=== PATIENT | female | born 1970 | race Caucasian/White ===

== ENCOUNTER 2020-09-22 02:00 | Emergency (ER) | payer OTHER ==
[2020-09-22] MEDS ORDERED: diphenhydrAMINE 25 MG Cap PO ONE (02:39)
[2020-09-22] MEDS ORDERED: methylPREDNISolone Sodium Succinate 125 MG/2 ML SDV IM ONE (02:39)
[2020-09-22] MEDS ORDERED: hydrOXYzine HCl 25 MG Tab PO ONE (02:39)
--- NOTE | 2020-09-22 02:39 | EDM.PDOC ---
ED HPI GENERAL MEDICAL PROBLEM - General Chief Complaint: Skin Complaint Stated Complaint: RASH/HIVES Time Seen by Provider: 09/22/20 02:29 Source of Information: Reports: Patient History Limitations: Reports: No Limitations - History of Present Illness INITIAL COMMENTS - FREE TEXT/NARRATIVE: Brittny is a 50-year-old female presenting to the ED with ongoing issues with urticaria for the last 2 to 3 weeks. Patient has been on several rounds of Medrol Dosepaks with minimal improvement and then the rash returns after completing the Medrol Dosepak. 3 weeks ago the patient was started on Metformin. She met with her pharmacist today who told her to stop the Metformin. He advised her to take Pepcid and Claritin. She reports the rash is very itchy and burning. Her skin is red and swollen. He denies any other new exposures. Patient denies any shortness of breath or difficulty swallowing. She has not been able to sleep because of the itching. hives/rash Pain Score (Numeric/FACES): 9 - Related Data Allergies Allergy/AdvReac Type Severity Reaction Status Date / Time No Known Allergies Allergy Verified 09/22/20 02:16 Home Meds: Home Meds Gabapentin [Neurontin] 1 tab PO BEDTIME 09/22/20 [History] Levothyroxine Sodium [Synthroid] 1 tab PO DAILY 09/22/20 [History] Metoprolol Succinate [Toprol XL] 1 tab PO DAILY 09/22/20 [History] Progesterone, Micronized [Progesterone] 2 tab PO DAILY 09/22/20 [History] hydrOXYzine HCL [Hydroxyzine HCl] 25 mg PO TID PRN #30 tablet 09/22/20 [Rx] hydroCHLOROthiazide [Hydrochlorothiazide] 1 tab PO DAILY 09/22/20 [History] lisinopriL [Zestril] 1 tab PO DAILY 09/22/20 [History] predniSONE [Prednisone] 10 mg PO ASDIRECTED #30 tablet 09/22/20 [Rx] Past Medical History Cardiovascular History: Reports: Hypertension 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: Endocrine/Metabolic History: Reports: Hypothyroidism, Other (See Below) Other Endocrine/Metabolic History: pre diabetic - Infectious Disease History Infectious Disease History: Reports: Chicken Pox - Past Surgical History Female Surgical History: Reports: Tubal Ligation Social & Family History - Family History Family Medical History: No Pertinent Family History - Tobacco Use Tobacco Use Status *Q: Current Every Day Tobacco User Years of Tobacco use: 40 Packs/Tins Daily: 1 - Caffeine Use Caffeine Use: Reports: Coffee - Recreational Drug Use Recreational Drug Use: No ED ROS GENERAL - Review of Systems Review Of Systems: See Below Constitutional: Reports: No Symptoms HEENT: Reports: No Symptoms Respiratory: Reports: No Symptoms Cardiovascular: Reports: No Symptoms Endocrine: Reports: No Symptoms GI/Abdominal: Reports: No Symptoms : Reports: No Symptoms Musculoskeletal: Reports: No Symptoms Skin: Reports: Pruritis, Urticaria Neurological: Reports: No Symptoms Psychiatric: Reports: No Symptoms Hematologic/Lymphatic: Reports: No Symptoms Immunologic: Reports: No Symptoms ED EXAM, SKIN/RASH Exam: See Below Exam Limited By: No Limitations General Appearance: Alert, Anxious, Moderate Distress Eye Exam: Bilateral Eye: EOMI, PERRL Ears: Normal External Exam Nose: Normal Inspection Throat/Mouth: Normal Oropharynx, Normal Voice, No Airway Compromise Head: Atraumatic, Normocephalic, Facial Swelling (Urticaria on the face and ne ck) Neck: Normal Inspection, Supple, Full Range of Motion Respiratory/Chest: No Respiratory Distress, Lungs Clear, Normal Breath Sounds Cardiovascular: Normal Peripheral Pulses, Regular Rate, Rhythm, No Murmur GI/Abdominal: Normal Bowel Sounds, Soft, Non-Tender Extremities: Normal Inspection Neurological: Alert, Oriented, Normal Cognition, No Motor/Sensory Deficits Psychiatric: Anxious Skin: Other (Generalized urticaria including on the face, neck, back and abdomen, upper and lower extremities. The skin is quite erythematous. There is significant pruritus with the patient involuntarily scratching) Location, Skin: Generalized Characteristics: Urticarial Associated features: Warmth, Swelling, Induration Lymphatic: No Adenopathy Course - Vital Signs Last Recorded V/S: Last Vital Signs Temp 36.6 C 09/22/20 02:22 Pulse 97 09/22/20 02:22 Resp 16 09/22/20 02:22 BP 134/81 09/22/20 02:22 Pulse Ox 96 09/22/20 02:22 - Orders/Labs/Meds Meds: Medications Discontinued Medications Generic Name Dose Route Start Last Admin Trade Name Freq PRN Reason Stop Dose Admin Diphenhydramine HCl 50 mg 09/22/20 02:39 09/22/20 02:44 Diphenhydramine 25 Mg Cap PO 09/22/20 02:40 50 mg ONETIME ONE Administration Hydroxyzine HCl 25 mg 09/22/20 02:39 09/22/20 02:56 Hydroxyzine Hcl 25 Mg Tab PO 09/22/20 02:40 25 mg ONETIME ONE Administration Methylprednisolone Sodium Succinate 125 mg 09/22/20 02:39 09/22/20 02:44 Methylprednisolone Sodium Succinate 125 Mg/2 Ml Sdv IM 09/22/20 02:40 125 mg ONETIME ONE Administration - Re-Assessments/Exams Free Text/Narrative Re-Assessment/Exam: 09/22/20 02:42 the patient has generalized urticaria which is quite pruritic causing her to scratch even start to abrade the skin. Patient has not been able to sleep due to the pruritus. We will treat her with Solu-Medrol 125 mg IM, hydroxyzine 25 mg p.o., and diphenhydramine 50 mg p.o. I will likely put her on a prednisone 10-day taper. She did experience some improvement with the Medrol Dosepak, however, when she completed it the rash returned. In addition to the prednisone, we will also put her on oral hydroxyzine 25 mg 3 times daily as needed for itching. She was told by her pharmacist to discontinue the Metformin which I agree with. She should follow-up with her primary provider when returning back home in [place], [place]. I would also discontinue the hydrocortisone skin cream as it does not seem to be helping her at all. Departure - Departure Time of Disposition: 03:25 Disposition: Home, Self-Care 01 Clinical Impression: Urticaria due to drug allergy Medication reaction Qualifiers: Encounter type: initial encounter Qualified Code(s): T50.905A - Adverse effect of unspecified drugs, medicaments and biological substances, initial encounter - Discharge Information Prescriptions: hydrOXYzine HCL [Hydroxyzine HCl] 25 mg PO TID PRN #30 tablet PRN Reason: Itching predniSONE [Prednisone] 10 mg PO ASDIRECTED #30 tablet Instructions: Pruritus, Hives, [id number] Referrals: THIERNO BANKS [Other] Forms: ED Department Discharge Care Plan Goals: I would recommend stopping the Metformin as this may be the likely offender causing the hives. We are going to put you on a prednisone 12-day taper that you may start tomorrow. In addition, I am sending you with a prescription for hydroxyzine which you can fill this morning as well as the prednisone. The hydroxyzine will help control the itch. 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 I would avoid any hot showers or baths as this will cause a histamine release making the itching and swelling much worse. Return to the ED should you develop any increasing shortness of breath or difficulty swallowing. Follow-up with your primary care provider when you return home to discuss alternatives to the Metformin. Sepsis Event Note (ED) - Evaluation Sepsis Screening Result: No Definite Risk - Focused Exam Vital Signs: Vital Signs Temp Pulse Resp BP Pulse Ox 09/22/20 02:22 36.6 C 97 16 134/81 96 - Problem List & Annotations (1) Medication reaction SNOMED Code(s): 79526346 Code(s): T50.905A - ADVERSE EFFECT OF UNSP DRUG/MEDS/BIOL SUBST, INIT Status: Acute Priority: Low Current Visit: Yes Qualifiers: Encounter type: initial encounter Qualified Code(s): T50.905A - Adverse effect of unspecified drugs, medicaments and biological substances, initial en counter (2) Urticaria due to drug allergy SNOMED Code(s): 05556081 Code(s): L50.0 - ALLERGIC URTICARIA; T50.905A - ADVERSE EFFECT OF UNSP DRUG/MEDS/BIOL SUBST, INIT Status: Acute Priority: Low Current Visit: Yes - Problem List Review Problem List Initiated/Reviewed/Updated: Yes
== END 2020-09-22 03:33 | disposition home or self-care (01) ==
LOC: JP.ED 02:00
DX: L50.0 Allergic urticaria (principal); T38.0X5A Adverse effect of glucocorticoids and synthetic analogues, initial encounter; I10 Essential (primary) hypertension; E03.9 Hypothyroidism, unspecified; Z79.899 Other long term (current) drug therapy; Z72.0 Tobacco use
CPT/HCPCS: 96372; 99283; A9270; J2930